=== PATIENT | female | born 1970 | race Caucasian/White ===

== ENCOUNTER 2020-04-16 04:45 | Emergency (ER) | payer OTHER ==
[~2020-04-16] VITALS: Ht 160 cm; Wt 54.4 kg
--- NOTE | 2020-04-16 04:45 | NUR ---
PT BIB [facility], PREBOOK
[2020-04-16 04:50] VITALS: BP 103/57
--- NOTE | 2020-04-16 05:06 | NUR ---
Patient discharged back to [facility] Officer Art custody #[id number]. VSS and medically cleared by Dr. Owens.
[2020-04-16 05:07] VITALS: BP 103/57
== END 2020-04-16 05:06 ==
LOC: MED 04:45 → EDBD 04:45 → MED 05:06
DX: F41.9 Anxiety disorder, unspecified (principal); Z02.89 Encounter for other administrative examinations; Z91.030 Bee allergy status
CPT/HCPCS: 99283